=== PATIENT | male | born 1985 | race Two or more races ===

== ENCOUNTER → 2018-06-15 | Outpatient (CLI) | payer OTHER ==
--- NOTE | 2018-06-15 10:39 | Diagnostic Imaging Report ---
PROCEDURE: X-RAY CHEST, TWO VIEWS COMPARISON: None. INDICATIONS: CHECK UP FINDINGS: A lungs are well-inflated. No focal consolidation, pleural effusion, or pneumothorax. Symmetric nodular opacities projected over the lower lung zones compatible with nipple shadows. Cardiomediastinal contour and pulmonary vasculature are within normal limits. No acute osseous abnormality. CONCLUSION: No acute cardiopulmonary abnormality. Dictated by: Kulwinder Askew M.D. on 06/15/2018 at 10:45 Electronically approved by: Kulwinder Askew M.D. on 06/15/2018 at 10:45
== END ==
LOC: RAD 09:58
PROVIDERS: ATTEND Internal Medicine
DX: Z00.00 Encounter for general adult medical examination without abnormal findings (principal)
CPT/HCPCS: 71046